=== PATIENT | female | born 2000 | race Caucasian/White ===

== ENCOUNTER 2024-02-26 17:18 | Emergency (ER) | payer OTHER ==
[~2024-02-26] VITALS: Ht 165.1 cm; Wt 59.1 kg
[2024-02-26 17:23] VITALS: BP 107/71; TEMP 98.7
[2024-02-26 19:02] VITALS: PULSE 72
== END 2024-02-26 19:02 | disposition home or self-care (01) ==
LOC: COL.ER 17:18
DX: S40.011A Contusion of right shoulder, initial encounter (principal); V89.2XXA Person injured in unspecified motor-vehicle accident, traffic, initial encounter; Y92.410 Unspecified street and highway as the place of occurrence of the external cause